=== PATIENT | female | born 1955 | race American Indian/Alaskan Native ===

== ENCOUNTER 2025-04-01 18:12 | Emergency (ER) | payer OTHER ==
[~2025-04-01] VITALS: Ht 162.6 cm; Wt 84.4 kg
[~2025-04-01 18:12] MED LIST: LEVOTHYROXINE25 MC1 PO; LIPITOR20 MG PO
[2025-04-01 18:50] LABS: BLOOD/HGB, URINE SMALL (Negative); KETONE, URINE NEGATIVE (Negative); LEUK ESTERASE, URINE SMALL (negative); NITRITE, URINE NEGATIVE (negative)
[2025-04-01 19:01] LABS: BACTERIA, URINE RARE /hpf (negative); CASTS, URINE NONE SEEN \\lpf; CRYSTALS, URINE NONE SEEN (0-1+); EPITHELIAL CELLS, URINE SQUAMOUS 3+ /lpf (0-1+)
[2025-04-01 19:02] LABS: REFLEX CULTURE, URINE No (No)
[2025-04-01] MEDS ORDERED: CEPHALEXIN500 MG PO (19:57)
[2025-04-01] MEDS ORDERED: CEPHALEXIN MONOHYDRATE 500 MG HOME.PACK PO ONE (20:00)
[2025-04-01 20:10] VITALS: BP 120/55
== END 2025-04-01 20:09 | disposition home or self-care (01) ==
LOC: ED 18:12
PROVIDERS: Emergency Medicine
DX: N39.0 Urinary tract infection, site not specified (principal); R31.9 Hematuria, unspecified; E03.9 Hypothyroidism, unspecified; Z79.890 Hormone replacement therapy
CPT/HCPCS: 81001; 87077; 87088; 87186; 99284; A9270